=== PATIENT | female | born 1950 | race Caucasian/White ===

== ENCOUNTER → 2019-10-29 | Outpatient (CLI) | payer MEDICARE, BC ==
[~2019-10-29] MED LIST: LEVO125T5 PO; LOSA25TA11 PO; NEBI20TA2 PO; OMEP40CA45 PO
== END | disposition home or self-care (01) ==
LOC: LAB 10:41
PROVIDERS: ATTEND Nurse Anesthetist, Certified Registered
DX: Z20.828 Contact with and (suspected) exposure to other viral communicable diseases (principal)
CPT/HCPCS: U0003-CS

== ENCOUNTER → 2019-11-02 | Day surgery (SDC) | payer MEDICARE, BC ==
[~2019-11-02] MED LIST changes: +IPRATRPIUM/ALBUTEROL 0.5/2.5MG 3 ML NEBU. NEB PRN; +IV RINGERS SOLUTION,LACTATED 1,000 ML IV SCH; +MIDAZOLAM HCL PF 2 MG/2 ML VIAL. IV ONE; +ONDANSETRON PF 4 MG/2 ML VIAL. IV PRN; +PROPOFOL 10,000 MCG/ML (20ML) VIAL IV ONE
[2019-11-02 09:50] VITALS: BP 135/70
--- NOTE | 2019-11-03 15:08 | PATHOLOGY ---
[facility] Accession Number: [id number] . 01 Material submitted: . colon - TRANSVERSE COLON POLYP. Modifiers: transverse . 01 Clinical history: . COLONOSCOPY . 02 Diagnosis: Colon biopsy, transverse colon polyp: - Tubular adenoma. LBQ 11/03/2019 1337 Local . 02 Comment: There is no high grade dysplasia or evidence of malignancy. (JPM/db; 11/03/2019) . 02 Electronically signed: . Bryson Duran MD, Pathologist NPI- [id number] . 01 Gross description: . The specimen is received in formalin, labeled "Rosalba, Zuleima, transverse colon polyp" and consists of a fragment of pink-carpenter tissue measuring 0.5 x 0.3 cm which is entirely submitted in A1. (SDY; 11/02/2019) SYU/SYU 11/02/2019 1736 Local . 02 Pathologist provided ICD-10: D12.3 . 02 CPT . 522701 Specimen Comment: A courtesy copy of this report has been sent [phone] Specimen Comment: [phone], Specimen Comment: Report sent to ,DR ST / DR LORD Performed at: 01 [facility] [address], [place] [id number] MD Butch Schilling MD Phone: [phone] Performed at: 02 [facility] [address] [place], [place] [id number] MD Bryson Duran MD Phone: [phone]
== END | disposition home or self-care (01) ==
LOC: SURG 07:51
PROVIDERS: ATTEND Emergency Medicine
DX: Z09 Encounter for follow-up examination after completed treatment for conditions other than malignant neoplasm (principal); D12.3 Benign neoplasm of transverse colon; K57.30 Diverticulosis of large intestine without perforation or abscess without bleeding; M19.90 Unspecified osteoarthritis, unspecified site; I10 Essential (primary) hypertension; G47.33 Obstructive sleep apnea (adult) (pediatric); Z98.890 Other specified postprocedural states; Z79.899 Other long term (current) drug therapy; Z86.010 Personal history of colon polyps; Z85.528 Personal history of other malignant neoplasm of kidney; Z88.6 Allergy status to analgesic agent
CPT/HCPCS: 45380; 88305; J2704; J7120